=== PATIENT | male | born 1975 | race Hispanic/Latino ===

== ENCOUNTER 2023-05-09 14:48 | Emergency (ER) | payer OTHER ==
[2023-05-09] VITALS (9 sets, daily range): BP systolic 160–179; BP diastolic 96–112
[2023-05-09] MEDS ORDERED: KEFLEX500 MG PO (16:48)
== END 2023-05-09 17:01 | disposition home or self-care (01) | DRG 605 ==
LOC: ED 14:48
PROC: 0HQKXZZ Repair Right Lower Leg Skin, External Approach (ICD-10-PCS; principal; 2023-05-09)
DX: S81.811A Laceration without foreign body, right lower leg, initial encounter (principal); I10 Essential (primary) hypertension; W27.1XXA Contact with garden tool, initial encounter; Y93.H2 Activity, gardening and landscaping; Y99.0 Civilian activity done for income or pay